=== PATIENT | female | born 1990 | race African-American/Black ===

== ENCOUNTER 2017-11-03 19:52 | Emergency (ER) | payer OTHER ==
[~2017-11-03] VITALS: Ht 170.2 cm; Wt 62.9 kg
[2017-11-03 22:45] VITALS: BP 116/63
== END 2017-11-03 22:46 | disposition home or self-care (01) ==
LOC: EXP 19:52 → EME 19:52 → EXP 22:46
DX: T78.40XA Allergy, unspecified, initial encounter (principal); Z87.891 Personal history of nicotine dependence
CPT/HCPCS: 99281; 99284